=== PATIENT | female | born 1985 | race Caucasian/White ===

== ENCOUNTER 2016-07-11 10:38 | Emergency (ER) | payer MEDICAID ==
[~2016-07-11] VITALS: Ht 177.8 cm; Wt 91.6 kg
[~2016-07-11 10:38] MED LIST: BUSP10TA PO; DOCU-30 PO; IBUP-1222 PO; OXYC-302 PO; PREN1TAB60 PO
[2016-07-11 11:58] LABS: HCG UR OBC PASS
[2016-07-11 12:40] VITALS: BP 107/58
== END 2016-07-11 12:50 | disposition home or self-care (01) ==
LOC: ED 11:56
DX: S39.012A Strain of muscle, fascia and tendon of lower back, initial encounter (principal); F41.1 Generalized anxiety disorder; Z76.0 Encounter for issue of repeat prescription; Y08.89XA Assault by other specified means, initial encounter; Y93.89 Activity, other specified; Y92.89 Other specified places as the place of occurrence of the external cause; Y99.8 Other external cause status
CPT/HCPCS: 72110; 72220; 81025

== ENCOUNTER 2016-08-07 14:50 | Emergency (ER) | payer MEDICAID ==
[~2016-08-07] VITALS: Ht 177.8 cm; Wt 82.0 kg
[2016-08-07] MEDS ORDERED: SODIUM CHLORIDE FLUSH 10ML SYR IVF ONE (16:00)
[2016-08-07] MEDS ORDERED: SODIUM CHLORIDE 0.9% 1,000ML IVBOLUS ONE (16:00)
[2016-08-07] MEDS ORDERED: ONDANSETRON 2MG/ML, 2ML IVPush ONE (16:00)
[2016-08-07] MEDS ORDERED: MORPHINE SULFATE 4 MG/ML, 1ML IVPush PRN (16:00)
[2016-08-07 16:11] LABS: PATH.CAST-FLAG NOT PRESENT; SPERM-FLAG NOT PRESENT; SRC-FLAG NOT PRESENT; XTAL-FLAG NOT PRESENT; YLC-FLAG NOT PRESENT
[2016-08-07] MEDS ORDERED: MORPHINE SULFATE 4 MG/ML, 1ML ONE (16:29)
[2016-08-07] MEDS ORDERED: ONDANSETRON 2MG/ML, 2ML ONE (16:29)
[2016-08-07 16:45] LABS: BLOOD UREA NITROGEN 14 mg/dL (7-18)
[2016-08-07 19:58] VITALS: BP 114/76
== END 2016-08-07 20:17 | disposition home or self-care (01) ==
LOC: ED 16:23
DX: N83.201 Unspecified ovarian cyst, right side (principal); N89.8 Other specified noninflammatory disorders of vagina
CPT/HCPCS: 36415; 76830; 80048; 81001; 82040; 84703; 85025; 87210; 87491; 87591; 87808; 96361; 96374; 96375; 99285; J2405; J7030

== ENCOUNTER 2016-08-21 13:19 | Emergency (ER) | payer MEDICAID ==
[~2016-08-21] VITALS: Ht 177.8 cm; Wt 88.0 kg
[2016-08-21] MEDS ORDERED: MORPHINE SULFATE 4 MG/ML, 1ML ONE (13:50)
[2016-08-21] MEDS ORDERED: KETOROLAC 30 MG/1 ML ONE (13:50)
[2016-08-21] MEDS ORDERED: ONDANSETRON 2MG/ML, 2ML ONE (13:51)
[2016-08-21] MEDS ORDERED: MORPHINE SULFATE 4 MG/ML, 1ML IVPush PRN (14:00)
[2016-08-21] MEDS ORDERED: KETOROLAC 30 MG/1 ML IVPush ONE (14:00)
[2016-08-21] MEDS ORDERED: ONDANSETRON 2MG/ML, 2ML IVPush ONE (14:00)
[2016-08-21] MEDS ORDERED: SODIUM CHLORIDE FLUSH 10ML SYR IVF ONE (14:00)
[2016-08-21] MEDS ORDERED: SODIUM CHLORIDE 0.9% 1,000ML IVBOLUS ONE (14:00)
[2016-08-21 14:05] LABS: ASPARTATE AMINO TRANSFERASE 11 U/L (15-37); BLOOD UREA NITROGEN 15 mg/dL (7-18)
[2016-08-21 15:06] VITALS: BP 112/78
== END 2016-08-21 15:10 | disposition home or self-care (01) ==
LOC: ED 14:23
DX: R10.9 Unspecified abdominal pain (principal); Z87.891 Personal history of nicotine dependence
CPT/HCPCS: 36415; 74176; 80053; 81001; 83690; 84703; 85025; 87077; 87086; 87186; 96361; 96374; 96375; 99285; J1885; J2405; J7030

== ENCOUNTER 2016-11-02 22:37 | Emergency (ER) | payer MEDICAID ==
[~2016-11-02] VITALS: Ht 177.8 cm; Wt 88.1 kg
[~2016-11-02 22:37] MED LIST changes: +DOCU-131 PO; -DOCU-30 PO
[2016-11-02] MEDS ORDERED: HYDROmorphone 1 MG/ML, 1ML IM ONE (23:30)
[2016-11-02] MEDS ORDERED: ONDANSETRON ODT 4 MG PO ONE (23:30)
[2016-11-02] MEDS ORDERED: KETOROLAC 30 MG/1 ML IM ONE (23:30)
[2016-11-02] MEDS ORDERED: KETOROLAC 30 MG/1 ML ONE (23:37)
[2016-11-02] MEDS ORDERED: HYDROmorphone 1 MG/ML, 1ML ONE (23:37)
[2016-11-02] MEDS ORDERED: ONDANSETRON ODT 4 MG ONE (23:38)
[2016-11-02 23:47] LABS: HEMATOCRIT 42.1 % (34.6-47.8); HEMOGLOBIN 14.4 g/dL (11.7-16.4); WHITE BLOOD COUNT 13.1 x10^3/uL (3.4-10)
[2016-11-02 23:54] LABS: ASPARTATE AMINO TRANSFERASE 12 U/L (15-37); BLOOD UREA NITROGEN 20 mg/dL (7-18)
[2016-11-03 02:55] VITALS: BP 111/56
== END 2016-11-03 02:59 | disposition home or self-care (01) ==
LOC: ED 23:59
DX: R10.2 Pelvic and perineal pain (principal)
CPT/HCPCS: 36415; 76770; 76830; 80053; 81003; 84703; 85025; 96372; 99285; J1170; J1885; Q0162

== ENCOUNTER 2017-02-25 17:28 | Emergency (ER) | payer MEDICAID ==
[~2017-02-25] VITALS: Ht 177.8 cm; Wt 89.0 kg
[~2017-02-25 17:28] MED LIST changes: +AMOX-291 PO
[2017-02-25 17:30] VITALS: BP 110/72
== END 2017-02-25 18:25 | disposition home or self-care (01) ==
LOC: ED 18:19
DX: H65.03 Acute serous otitis media, bilateral (principal); J01.90 Acute sinusitis, unspecified; B97.89 Other viral agents as the cause of diseases classified elsewhere
CPT/HCPCS: 99282

== ENCOUNTER 2017-06-17 09:48 | Emergency (ER) | payer MEDICAID ==
[~2017-06-17] VITALS: Ht 177.8 cm; Wt 83.6 kg
[2017-06-17 09:50] VITALS: BP 129/82
== END 2017-06-17 10:08 | disposition left against medical advice (07) ==
LOC: ED 10:02
DX: R07.9 Chest pain, unspecified (principal); Z53.21 Procedure and treatment not carried out due to patient leaving prior to being seen by health care provider
CPT/HCPCS: 93005

== ENCOUNTER 2017-10-07 23:15 | Emergency (ER) | payer MEDICAID ==
[~2017-10-07] VITALS: Ht 175.3 cm; Wt 80.0 kg
[2017-10-07] MEDS ORDERED: SODIUM CHLORIDE FLUSH 10ML SYR IVF ONE (23:30)
[2017-10-07] MEDS ORDERED: ONDANSETRON 2MG/ML, 2ML IVPush ONE (23:30)
[2017-10-07 23:59] LABS: BASOPHILS # (AUTO) 0.03 x10^3/uL (0-0.1); BASOPHILS % (AUTO) 0 % (0-1); EOSINOPHILS # (AUTO) 0.04 x10^3/uL (0-0.4); EOSINOPHILS % (AUTO) 0 % (1-7); LYMPHOCYTES # (AUTO) 1.95 x10^3/uL (1-3.4); LYMPHOCYTES % (AUTO) 12 % (22-44); MD NO; MEAN CORPUSCULAR HEMOGLOBIN 29.2 pg (27.0-34.8); MEAN CORPUSCULAR HGB CONC 34.1 g/dL (32.4-35.8); MEAN CORPUSCULAR VOLUME 85.7 fL (80-100); MEAN PLATELET VOLUME 7.5 fL (7.4-10.4); MONOCYTES # (AUTO) 0.66 x10^3/uL (0.2-0.8); MONOCYTES % (AUTO) 4 % (2-9); NEUTROPHILS # (AUTO) 13.54 x10^3/uL (1.8-6.8); NEUTROPHILS % (AUTO) 84 % (42-75); PLATELET COUNT 339 x10^3/uL (130-400); RED BLOOD COUNT 5.21 x10^6/uL (3.82-5.3); RED CELL DISTRIBUTION WIDTH 13.7 % (9.6-15.2)
[2017-10-08 00:11] LABS: INTERNATIONAL NORMALIZED RATIO 0.95 (0.93-1.1); PROTHROMBIN TIME 9.8 Seconds (9.6-11.5)
[2017-10-08 00:12] LABS: ALANINE AMINOTRANSFERASE 25 U/L (12-78); ALBUMIN 4.2 g/dL (3.4-5.0); ANION GAP 6 mmol/L (5-15); CALCIUM 8.2 mg/dL (8.5-10.1); CHLORIDE 112 mmol/L (98-107); CREATININE 0.75 mg/dL (0.55-1.02)
[2017-10-08 00:13] LABS: MICROSCOPIC AUTO
[2017-10-08 00:15] LABS: CULTURE INDICATED? YES
[2017-10-08 00:18] LABS: ALKALINE PHOSPHATASE 69 U/L (45-117); BILIRUBIN,TOTAL 0.4 mg/dL (0.2-1.0); TOTAL PROTEIN 7.9 g/dL (6.4-8.2)
[2017-10-08] MEDS ORDERED: SODIUM CHLORIDE 0.9%, 500ML IVBOLUS ONE (00:30)
[2017-10-08] MEDS ORDERED: MORPHINE SULFATE 4 MG/ML, 1ML ONE ×2 (00:33→02:13)
[2017-10-08] MEDS ORDERED: ONDANSETRON 2MG/ML, 2ML ONE (00:33)
[2017-10-08] MEDS: MORPHINE SULFATE 4 MG/ML, 1ML IVPush PRN ×2 (00:42→02:17)
[2017-10-08] MEDS ORDERED: OMNIPAQUE 350 MG/ML, 100ML BOTTLE ONE (01:13)
[2017-10-08] MEDS ORDERED: LIDOCAINE-MPF 2%, 2ML ONE (02:22)
[2017-10-08] MEDS ORDERED: LIDOCAINE-MPF 1%, 5ML INFIL ONE (02:30)
[2017-10-08] MEDS ORDERED: BACITRACIN ZINC OINT 500U/GM, 0.9 GM ONE (03:26)
[2017-10-08] MEDS ORDERED: HYDROcodone/APAP 5/325 TABLET PO ONE (03:30)
[2017-10-08] MEDS ORDERED: HYDROcodone/APAP 5/325 TABLET ONE (03:39)
[2017-10-08 03:44] VITALS: BP 112/67
== END 2017-10-08 03:46 | disposition home or self-care (01) ==
LOC: ED 23:32
DX: S01.111A Laceration without foreign body of right eyelid and periocular area, initial encounter (principal); S20.211A Contusion of right front wall of thorax, initial encounter; S30.0XXA Contusion of lower back and pelvis, initial encounter; S30.1XXA Contusion of abdominal wall, initial encounter; R82.99 Other abnormal findings in urine; Z79.899 Other long term (current) drug therapy; Y04.2XXA Assault by strike against or bumped into by another person, initial encounter; Y93.89 Activity, other specified; Y92.009 Unspecified place in unspecified non-institutional (private) residence as the place of occurrence of the external cause; Y99.8 Other external cause status
CPT/HCPCS: 12051; 36415; 70450; 70486; 71260; 72125; 73130; 74177; 80053; 80307; 81001; 83690; 84703; 85025; 85610; 85730; 87086; 96374; 96375; 96376; 99284; J2405; J7040; Q9967

== ENCOUNTER 2019-02-14 16:01 | Emergency (ER) | payer MEDICAID ==
[~2019-02-14] VITALS: Ht 177.8 cm; Wt 94.0 kg
--- NOTE | 2019-02-14 17:24 | NUR ---
PT AMBULATED TO ROOM
--- NOTE | 2019-02-14 17:24 | NUR ---
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
--- NOTE | 2019-02-14 17:40 | NUR ---
PT C/O COUGH, STERNAL CP, AND SOB FOR TWO DAYS. PT CAN FEEL DRAINAGE DOWN BACK OF THROAT. CONNECTED TO MONITORING. CALL LIGHT IN REACH.
[2019-02-14] MEDS ORDERED: DEXAMETHASONE 4 MG TABLET ONE (17:44)
--- NOTE | 2019-02-14 17:49 | NUR ---
MEDS ADMIN PER APR. LAB AT BEDSIDE.
[2019-02-14] MEDS ORDERED: ALBUTEROL SULFATE 2.5 MG/3 ML NPPB ONE (18:00)
[2019-02-14] MEDS ORDERED: DEXAMETHASONE 4 MG TABLET PO ONE (18:00)
[2019-02-14] MEDS ORDERED: ALBUTEROL SULFATE 2.5 MG/3 ML ONE (18:03)
[2019-02-14 18:09] LABS: BASOPHILS # (AUTO) 0.04 x10^3/uL (0-0.1); BASOPHILS % (AUTO) 1 % (0-1); EOSINOPHILS # (AUTO) 0.15 x10^3/uL (0-0.4); EOSINOPHILS % (AUTO) 2 % (1-7); LYMPHOCYTES # (AUTO) 3.29 x10^3/uL (1-3.4); LYMPHOCYTES % (AUTO) 38 % (22-44); MD NO; MEAN CORPUSCULAR HEMOGLOBIN 28.9 pg (27.0-34.8); MEAN CORPUSCULAR HGB CONC 32.9 g/dL (32.4-35.8); MEAN CORPUSCULAR VOLUME 87.8 fL (80-100); MEAN PLATELET VOLUME 7.5 fL (7.4-10.4); MONOCYTES # (AUTO) 0.52 x10^3/uL (0.2-0.8); MONOCYTES % (AUTO) 6 % (2-9); NEUTROPHILS % (AUTO) 54 % (42-75); PLATELET COUNT 327 x10^3/uL (130-400); RED BLOOD COUNT 5.38 x10^6/uL (3.82-5.3); RED CELL DISTRIBUTION WIDTH 13.4 % (9.6-15.2)
[2019-02-14 18:14] LABS: ALBUMIN 4.4 g/dL (3.4-5.0); ANION GAP 6 mmol/L (5-15); CALCIUM 9.1 mg/dL (8.5-10.1); CHLORIDE 107 mmol/L (98-107); CREATININE 0.79 mg/dL (0.55-1.02)
--- NOTE | 2019-02-14 18:14 | NUR ---
RT AT BEDSIDE.
[2019-02-14 18:35] VITALS: BP 129/72
--- NOTE | 2019-02-14 18:36 | NUR ---
PT RESTING COMFORTABLY ON GURNEY. NADN. STATES FEELS BETTER AFTER NEB TX.
--- NOTE | 2019-02-14 18:37 | NUR ---
ALL MEDS ADMIN PER APR. CHART UP FOR RECHECK.
== END 2019-02-14 19:10 ==
LOC: ED 19:04
DX: J01.80 Other acute sinusitis (principal); B97.89 Other viral agents as the cause of diseases classified elsewhere
CPT/HCPCS: 36415; 71045; 80048; 82040; 83605; 85025; 93005; 94640; 99284; J7613